=== PATIENT | female | born 1950 | race Caucasian/White ===

== ENCOUNTER 2024-08-23 11:38 | Emergency (ER) | payer OTHER ==
--- OUTSIDE RECORDS SUMMARY | 2024-08-23 11:39 | XMS REPORT | Continuity of Care Document ---
Author Name Unknown Address [address] [place] [address] thconnect Address [address] [place] [address] Care Team Providers [facility] Name Role Phone [email or web address] Attending Clinician Unavaila ble [email or web address] Admitting Clinician Unavaila ble Encounters Start Date/Time End Date/Time Encounter Type Admission Type Attending Clinicians Care Facility Care Department Encounter ID Source 2023-06-11 00:00:00 2023-06-11 00:00:00 Outpatient [email or web address] [facility] [id number] [facility]
--- NOTE | 2024-08-23 12:32 | RAD REPORT ---
EXAM: CT brain without contrast HISTORY: fall, head injury COMPARISON: None TECHNIQUE: Multiple contiguous axial images were obtained and a CT of the brain without contrast. Sag ittal and coronal reformats were performed. FINDINGS: The Department artifact limits evaluation along the mickey and upper aspect of the posterior fossa. No evidence of hydrocephalus, intracranial hemorrhage, or extra-axial fluid collection. Mild brain atrophy with mild periventricular and deep white matter chronic microvascular ischemic ch anges present. The calvarium is intact. The visualized paranasal sinuses and mastoid air cells are essentially clear . Left parietal small scalp hematoma IMPRESSION: No evidence of acute intracranial abnormality. Small left parietal scalp hematoma. EXAM: CT of the cervical spine without contrast HISTORY: fall, head injury COMPARISON: None TECHNIQUE: Multiple contiguous axial images were obtained in a CT of the cervical spine without contr ast. Sagittal and coronal reformats were performed. FINDINGS: The vertebral bodies demonstrate normal height and alignment. No evidence of acute fracture or subluxation.. Moderate multilevel degenerative changes contributing to mild to moderate degrees of neural foraminal narrowing, most pronounced at C3-4 on the right. Ankylosis along the bilateral C2 -3 facet articulations. No prevertebral soft tissue swelling is seen. The posterior facets are well aligned. Normal alignment of the skull base with the cervical spine is seen. The lung apices are unremarkable. IMPRESSION: No evidence of acute osseous abnormality of the cervical spine. Degenerative changes as above.
--- NOTE | 2024-08-23 12:50 | RAD REPORT ---
EXAMINATION: XR LEFT HUMERUS HISTORY: PAIN TECHNIQUE: Multiple views of the left humerus were obtained. COMPARISON: None FINDINGS: Bones are significantly demineralized. Irregular sclerotic appearance to the humeral head n oted there may be at least partial fusion of glenohumeral joint. Underlying rotator cuff is likely torn. No gross evidence of acute fracture. If pain persists, CT may be helpful.
--- NOTE | 2024-08-23 12:52 | RAD REPORT ---
EXAMINATION: XR LEFT FEMUR CLINICAL INDICATION: . PAIN TECHNIQUE: Multiple views of the left femur were obtained. COMPARISON: No prior exam. FINDINGS: Extensive hardware noted throughout the left femur. No hardware abnormality discerned. The bones are osteopenic. No gross fracture appreciated.
--- NOTE | 2024-08-23 13:22 | ER ---
Nurse's Notes [facility] Name: Shantal Andujar Age: 74 yrs Sex: Female : 1950 Arrival Date: 08/23/2024 Time: 11:38 Bed 15 Private MD: Diagnosis: Fall on same level, unspecified;Contusion of left upper arm Presentation: 08/23 11:46 Chief complaint: EMS states: Called due to patient tripping and falling. Pt states that cm10 she was walking and tripped on a mat. Pt complaining of pain to left shoulder, left leg and pain to the left side of her head. No LOC, not on blood thinners. Coronavirus screen: Client denies travel out of the [place] in the last 14 days. Ebola Screen: Patient denies travel to an Ebola-affected area in the 21 days before illness onset. Initial Sepsis Screen: Does the patient meet any 2 criteria? HR > 90 bpm. Does the patient have a suspected source of infection? No. Patient's initial sepsis screen is negative. Risk Assessment: Do you want to hurt yourself or someone else? Patient reports no desire to harm self or others. Onset of symptoms was August 23, 2024. Care prior to arrival: Medication(s) given: Fentanyl 50 mcg IV initiated. 22 GA, in the right wrist. 11:46 Method Of Arrival: EMS: [facility] 11:46 Acuity: ANDREW 3 cm10 Triage Assessment: 11:50 General: Appears in no apparent distress. uncomfortable, Behavior is calm, cooperative. cm10 Pain: Complains of pain in head and anterior aspect of left shoulder Pain does not radiate. Pain currently is 2 out of 10 on a pain scale. Neuro: No deficits noted. Level of Consciousness is awake, alert, obeys commands, Oriented to person, place, time, situation, Appropriate for age. Respiratory: No deficits noted. Airway is patent Respiratory effort is even, unlabored, Respiratory pattern is regular, symmetrical. Derm: Wound noted head Wound is Hematoma. Historical: - Allergies: 11:49 No Known Allergies; cm10 - PMHx: 11:52 Hypertensive disorder; Rheumatoid arthritis; Hypercholesterolemia; cm10 - PSHx: 11:52 Hip; cm10 - Immunization history:: Adult Immunizations up to date. - Infectious Disease History:: Denies. - Social history:: Smoking status: Patient denies any tobacco usage or history of. - Family history:: not pertinent. - Hospitalizations: : No recent hospitalization is reported. Screenin:50 [facility] ED Fall Risk Assessment (Adult) History of falling in the last 3 months, cm10 including since admission Yes- single mechanical fall (1 pt) Confusion or Disorientation No (0 pts) Intoxicated or Sedated No (0 pts) Impaired Gait No (0 pts) Mobility Assist Device Used No (0 pt) Altered Elimination No (0 pt) Score/Fall Risk Level 0 - 2 = Low Risk Oriented to surroundings, Maintained a safe environment, Hourly rounding (assess needs \T\ fall precautionary measures) done. Abuse screen: Denies threats or abuse. Denies injuries from another. Nutritional screening: No deficits noted. Tuberculosis screening: No symptoms or risk factors identified. Assessment: 13:46 Reassessment: Patient appears in no apparent distress at this time. Patient and/or cm10 family updated on plan of care and expected duration. Pain level reassessed. Patient is alert, oriented x 3, equal unlabored respirations, skin warm/dry/pink. Vital Signs: 11:46 BP 140 / 78; Pulse 91; Resp 17; Temp 97.9(O); Pulse Ox 97% on R/A; Weight 57 kg; Height cm10 5 ft. 4 in. ; Pain 2/10; 13:44 BP 138 / 68; Pulse 86; Resp 15; Pulse Ox 97% ; cm10 11:46 Body Mass Index 21.57 (57.00 kg, 162.56 cm) cm10 11:46 Pain Scale: Adult cm10 ED Course: 11:41 Patient arrived in ED. cm10 11:44 Simba Lorenzo MD is Attending Physician. rn 11:49 Triage completed. cm10 11:49 Arm band placed on right wrist. Patient placed in an exam room, on a stretcher. cm10 11:49 Maintain EMS IV. Dressing intact. Good blood return noted. Site clean \T\ dry. Gauge \T\ cm 10 site: 22g right wrist. Flushed with 10 mL NS. 11:50 Patient has correct armband on for positive identification. Bed in low position. Call cm10 light in reach. Side rails up X2. Provided Education on: ER process and procedures.. 12:09 CT Head C Spine In Process Unspecified. EDMS 12:43 XRAY Humerus LEFT In Process Unspecified. EDMS 12:43 XRAY Femur LEFT In Process Unspecified. EDMS 13:01 Meliza Archuleta, RN is Primary Nurse. cm10 13:21 South Reyes MD is Referral Physician. rn 13:21 No provider procedures requiring assistance completed. cm10 13:46 IV discontinued, intact, bleeding controlled, No redness/swelling at site. Pressure cm10 dressing applied. Sling applied to left arm. Administered Medications: No medications were administered Medication: 11:50 VIS not applicable for this client. cm10 Outcome: 13:21 Discharge ordered by . rn 13:46 Discharged to home ambulatory, with family, cm10 13:46 Condition: good 13:46 Discharge instructions given to patient, Instructed on discharge instructions, follow up and referral plans. Demonstrated understanding of instructions, follow-up care, 13:47 Patient left the ED. cm10 Signatures: Dispatcher [employer] [facility] Simba Lorenzo MD MD rn Martinez, Clarissa, RN RN cm10
--- NOTE | 2024-08-23 13:22 | EDPHYS ---
Physician Documentation [facility] Name: Shantal Andujar Age: 74 yrs Sex: Female : 1950 Arrival Date: 08/23/2024 Time: 11:38 Bed 15 Private MD: ED Physician Simba Lorenzo HPI: 08/23 13:16 This 74 yrs old Female presents to ER via EMS with complaints of Fall Injury. rn 13:16 Details of fall: The patient fell from an upright position. rn 13:17 Onset: The symptoms/episode began/occurred today. Associated injuries: The patient rn sustained injury to the head, Left upper arm and left hip. Severity of symptoms: At their worst the symptoms were moderate, in the emergency department the symptoms are unchanged. The patient has experienced similar episodes in the past. Patient reports tripped over mat and fell onto left side, reports mainly having pain to left upper arm just below shoulder. Also hit head and has bump to left forehead. Also struck left hip with mild pain. Reports previous hip replacement with hardware. Mostly concerned of the left arm. No chest/back/abdominal injury or pain. Historical: - Allergies: 11:49 No Known Allergies; cm10 - PMHx: 11:52 Hypertensive disorder; Rheumatoid arthritis; Hypercholesterolemia; cm10 - PSHx: 11:52 Hip; cm10 - Immunization history:: Adult Immunizations up to date. - Infectious Disease History:: Denies. - Social history:: Smoking status: Patient denies any tobacco usage or history of. - Family history:: not pertinent. - Hospitalizations: : No recent hospitalization is reported. ROS: 13:17 Constitutional: Negative for fever, chills, and weight loss, Neck: Negative for injury, rn pain, and swelling, Cardiovascular: Negative for chest pain, palpitations, and edema, Respiratory: Negative for shortness of breath, cough, wheezing, and pleuritic chest pain, Abdomen/GI: Negative for abdominal pain, nausea, vomiting, diarrhea, and constipation, Back: Negative for injury and pain, MS/Extremity: Positive for left arm and left hip pain Skin: Negative for injury, rash, and discoloration, Neuro: Positive for mild headache, negative for focal neurological deficit Exam: 13:17 Constitutional: This is a well developed, well nourished patient who is awake, alert, rn and in no acute distress. Head/Face: Normocephalic, 2 cm hematoma along the hairline left upper forehead. No depression. Eyes: Pupils equal round and reactive to light, extra-ocular motions intact. Neck: No midline cervical tenderness Chest/axilla: No rib tenderness or crepitus noted Cardiovascular: Regular rate and rhythm. No pulse deficits. Abdomen/GI: Soft, non-tender MS/ Extremity: Pulses equal, no cyanosis. Mild tenderness left mid humeral shaft without gross deformity. No tenderness along clavicle or shoulder joint proper. Full range of motion at the left elbow/forearm/wrist/hand. No significant swelling or gross deformity noted Neuro: Awake and alert, GCS 15 Vital Signs: 11:46 BP 140 / 78; Pulse 91; Resp 17; Temp 97.9(O); Pulse Ox 97% on R/A; Weight 57 kg; Height cm10 5 ft. 4 in. ; Pain 2/10; 13:44 BP 138 / 68; Pulse 86; Resp 15; Pulse Ox 97% ; cm10 11:46 Body Mass Index 21.57 (57.00 kg, 162.56 cm) cm10 11:46 Pain Scale: Adult cm10 MDM: 11:44 Medical Screening Exam initiated rn 13:20 Differential diagnosis: closed head injury, contusion, fracture, sprain, strain. Data rn reviewed: vital signs, nurses notes, radiologic studies, CT scan, plain films, and as a result, I will discharge patient. Counseling: I had a detailed discussion with the patient and/or guardian regarding the historical points, exam findings, and any diagnostic results supporting the discharge/admit diagnosis, lab results, radiology results, the need for outpatient follow up, to return to the emergency department if symptoms worsen or persist or if there are any questions or concerns that arise at home. Special discussion: I discussed with the patient/guardian in detail that at this point there is no indication for admission to the hospital. It is understood, however, that if the symptoms persist or worsen the patient needs to return immediately for re-evaluation. Based on the history and exam findings, there is no indication for further emergent testing or inpatient evaluation. I discussed with the patient/guardian the need to see the orthopedic surgeon for further evaluation of the symptoms. I discussed with the patient/guardian the need to see the primary care provider for further evaluation of the symptoms. ED course: No acute fracture of the left humerus on images per my interpretation. CT head and C-spine negative for acute injury. X-ray left femur negative for acute fracture or dislocation. Hardware appears intact and in good position. Patient still having mild tenderness and painful range of motion when trying to lift left arm at shoulder and just inferior to shoulder joint. Will place in shoulder immobilizer as likely rotator cuff injury or muscular/tendon/ligamentous injury present. Recommend MRI and Ortho follow-up. Return precautions given and understood.. 08/23 11:56 Order name: CT Head C Spine; Complete Time: 12:54 rn 08/23 11:56 Order name: XRAY Humerus LEFT; Complete Time: 12:54 rn 08/23 11:56 Order name: XRAY Femur LEFT; Complete Time: 12:54 rn 08/23 12:56 Order name: Shoulder Immobilizer; Complete Time: 13:44 rn Administered Medications: No medications were administered Disposition Summary: 08/23/24 13:21 Discharge Ordered Notes: Location: Home rn Problem: new rn Symptoms: have improved rn Condition: Stable rn Diagnosis - Fall on same level, unspecified rn - Contusion of left upper arm rn Followup: rn - With: South Reyes MD - When: As needed - Reason: Recheck today's complaints, Re-evaluation by your physician Discharge Instructions: - Discharge Summary Sheet rn - Head Injury, Adult rn - How to Use a Shoulder Immobilizer rn - Shoulder Pain rn - Shoulder Sprain rn Forms: - Medication Reconciliation Form rn - Antibiotic health information internship - Prescription Opioid Use rn - Patient Portal Instructions rn - Leadership Thank You Letter rn Signatures: Dispatcher [employer] Simba Nathan MD MD rn Martinez, Clarissa, RN RN cm10 Corrections: (The following items were deleted from the chart) 12:45 11:56 Hip Left 2 View+RAD.RAD.BRZ ordered. EDMA CHARLETTE
[2024-08-23 14:16] VITALS: TEMP 97.9; O2SAT 97
[2024-08-23 14:17] VITALS: BP 138/68
== END 2024-08-23 13:47 | disposition home or self-care (01) ==
LOC: ER 11:38
DX: S40.022A Contusion of left upper arm, initial encounter (principal); W18.30XA Fall on same level, unspecified, initial encounter; M06.9 Rheumatoid arthritis, unspecified; Z96.641 Presence of right artificial hip joint
CPT/HCPCS: 70450; 72125; 99283

== ENCOUNTER 2025-06-11 21:22 | Emergency (ER) | payer OTHER ==
--- NOTE | 2025-06-11 22:00 | RAD REPORT ---
EXAMINATION: XR RIGHT FEMUR CLINICAL INDICATION: . PAIN RIGHT TECHNIQUE: Multiple views of the right femur were obtained. COMPARISON: No prior exam. FINDINGS: Advanced osteopenia. Right total hip arthroplasty is noted. Right total knee arthroplasty i s also present. Mild atherosclerosis. No acute fracture seen. No hardware loosening.
--- NOTE | 2025-06-11 22:30 | ER ---
Nurse's Notes [facility] Name: Shantal Andujar Age: 75 yrs Sex: Female : 1950 Arrival Date: 06/11/2025 Time: 21:22 Bed 9 Private MD: Diagnosis: Pain in right leg Presentation: 06/11 21:29 Chief complaint: EMS states: Pt slid down the wall while trying to help her to jb4 the bathroom. Reports right hip pain. ARLYN hip and knee replacement. Coronavirus screen: At this time, the client does not indicate any symptoms associated with coronavirus-19. Ebola Screen: No symptoms or risks identified at this time. Initial Sepsis Screen: Does the patient meet any 2 criteria? No. Patient's initial sepsis screen is negative. Does the patient have a suspected source of infection? No. Patient's initial sepsis screen is negative. Risk Assessment: Do you want to hurt yourself or someone else? Patient reports no desire to harm self or others. Onset of symptoms was June 11, 2025. Transition of care: patient was not received from another setting of care. 21:29 Method Of Arrival: EMS: [facility] jb4 21:29 Acuity: ANDREW 3 jb4 Historical: - Allergies: 21:31 No Known Allergies; jb4 - Home Meds: 21:31 Folic Acid Oral [Active]; amlodipine oral [Active]; atorvastatin oral [Active]; HCTZ jb4 [Active]; meloxicam oral [Active]; Methotrexate Sodium Oral [Active]; Methylprednisolone Oral [Active]; Metoprolol Tartrate Oral [Active]; Ramipril Oral [Active]; - PMHx: 21:31 Hypercholesterolemia; Rheumatoid Arthritis; Hypertensive disorder; jb4 - PSHx: 21:31 hip; ARLYN hip and knee replacement; jb4 Screenin:46 [facility] ED Fall Risk Assessment (Adult) History of falling in the last 3 months, vc1 including since admission Yes- single mechanical fall (1 pt) Confusion or Disorientation No (0 pts) Intoxicated or Sedated No (0 pts) Impaired Gait No (0 pts) Mobility Assist Device Used No (0 pt) Altered Elimination No (0 pt) Score/Fall Risk Level 0 - 2 = Low Risk Oriented to surroundings, Maintained a safe environment. Abuse screen: Denies threats or abuse. Nutritional screening: No deficits noted. Tuberculosis screening: No symptoms or risk factors identified. Assessment: 21:45 General: Appears in no apparent distress. uncomfortable, Behavior is calm, cooperative, vc1 appropriate for age. Pain: Denies pain. Neuro: Level of Consciousness is awake, alert, obeys commands, Oriented to person, place, time, situation. Cardiovascular: Patient's skin is warm and dry. Respiratory: Airway is patent Respiratory effort is even, unlabored, Respiratory pattern is regular, symmetrical. Derm: Skin is intact, Skin is pink, warm \T\ dry. Musculoskeletal: Circulation, motion, and sensation intact. Range of motion: intact in all extremities. 22:46 Reassessment: Patient appears in no apparent distress at this time. Patient and/or vc1 family updated on plan of care and expected duration. Pain level reassessed. Patient is alert, oriented x 3, equal unlabored respirations, skin warm/dry/pink. Vital Signs: 21:43 Pulse 62; Resp 16; Temp 99.2(O); Pulse Ox 97% ; Weight 56.7 kg (R); Height 5 ft. 4 in. jb4 (R); 22:46 BP 119 / 68; Pulse 72; Resp 16; Pulse Ox 98% on R/A; vc1 21:43 Body Mass Index 21.46 (56.70 kg, 162.56 cm) jb4 ED Course: 21:22 Patient arrived in ED. rv1 21:23 Susana Cerna FNP-C is [facility]. kb 21:23 Dion Swenson MD is Attending Physician. kb 21:30 Triage completed. jb4 21:31 Arm band placed on right wrist. jb4 21:53 Femur Right XRAY In Process Unspecified. EDMS 22:46 Patient has correct armband on for positive identification. Bed in low position. Call vc1 light in reach. Side rails up X 1. Provided Education on: plan of care. 22:46 No provider procedures requiring assistance completed. IV discontinued, intact, vc1 bleeding controlled, No redness/swelling at site. Pressure dressing applied. Administered Medications: No medications were administered Medication: 22:46 VIS not applicable for this client. vc1 Outcome: 22:30 Discharge ordered by . kb 22:46 Discharged to home ambulatory, with family, vc1 22:46 Condition: stable 22:46 Discharge instructions given to patient, Instructed on discharge instructions, follow up and referral plans. Demonstrated understanding of instructions, follow-up care, 22:48 Patient left the ED. vc1 Signatures: Dispatcher [employer] EDSusana Ward, [employer] SALES REPRESENTATIVE-C [employer] SALES REPRESENTATIVE-Jalil Bashir RN RN jb4 Abiola Giron RN RN vc1 Aleyda Morris rv1 Corrections: (The following items were deleted from the chart) 21:35 21:31 PMHx: Hypercholesterolemia; jb4 jb4
--- NOTE | 2025-06-11 22:30 | EDPHYS ---
Physician Documentation [facility] Name: Shantal Andujar Age: 75 yrs Sex: Female : 1950 Arrival Date: 06/11/2025 Time: 21:22 Bed 9 Private MD: ED Physician Dion Swenson HPI: 06/11 21:37 This 75 yrs old Female presents to ER via EMS with complaints of fall, right leg pain. kb 21:37 Patient is a 75-year-old female who presents for right lateral thigh pain. States her kb fell, accidentally pushed her in the process and made her fall as well. Complains of pain to the right leg only. Denies any other pain or trauma. Denies hitting head or LOC.. Historical: - Allergies: 21:31 No Known Allergies; jb4 - Home Meds: 21:31 Folic Acid Oral [Active]; amlodipine oral [Active]; atorvastatin oral [Active]; HCTZ jb4 [Active]; meloxicam oral [Active]; Methotrexate Sodium Oral [Active]; Methylprednisolone Oral [Active]; Metoprolol Tartrate Oral [Active]; Ramipril Oral [Active]; - PMHx: 21:31 Hypercholesterolemia; Rheumatoid Arthritis; Hypertensive disorder; jb4 - PSHx: 21:31 hip; ARLYN hip and knee replacement; jb4 ROS: 21:36 Constitutional: As per HPI kb Exam: 21:36 Constitutional: This is a well developed, well nourished patient who is awake, alert, kb and in no acute distress. Head/Face: Normocephalic, atraumatic. ENT: Moist Mucous membranes Respiratory: Respirations even and unlabored. No increased work of breathing. Talking in full sentences Skin: Warm, dry with normal turgor. Normal color. Neuro: Awake and alert, GCS 15, oriented to person, place, time, and situation. 21:36 Musculoskeletal/extremity: Extremities: grossly normal except: noted in the lateral aspect of right thigh: pain, tenderness, ROM: intact in all extremities, Circulation is intact in all extremities. Sensation intact. Vital Signs: 21:43 Pulse 62; Resp 16; Temp 99.2(O); Pulse Ox 97% ; Weight 56.7 kg (R); Height 5 ft. 4 in. jb4 (R); 22:46 BP 119 / 68; Pulse 72; Resp 16; Pulse Ox 98% on R/A; vc1 21:43 Body Mass Index 21.46 (56.70 kg, 162.56 cm) jb4 MDM: 21:23 Medical Screening Exam initiated kb 21:36 Differential diagnosis: closed fracture, contusion. Data reviewed: vital signs, nurses kb notes. Historians other than the Patient: EMS: [facility]. 21:52 Independent interpretation of the following test(s) in the Emergency Department X-Ray: kb My interpretation is no acute fracture. Counseling: I had a detailed discussion with the patient and/or guardian regarding the historical points, exam findings, and any diagnostic results supporting the discharge/admit diagnosis, radiology results, the need for outpatient follow up, a family practitioner, to return to the emergency department if symptoms worsen or persist or if there are any questions or concerns that arise at home. 06/11 21:23 Order name: Femur Right XRAY; Complete Time: 22:03 kb Administered Medications: No medications were administered Disposition: 06/12 21:58 Co-signature as Attending Physician, Dion Swenson MD I agree with the assessment sp4 and plan of care. I reviewed the patient's care provided by Advanced Practice Provider \T\ agree w/ the diagnosis \T\ care plan. I personally saw the pt \T\ performed a substantive portion of the visit, incldng all aspects of the (History/Exam/Medical Decision Making). Disposition Summary: 06/11/25 22:30 Discharge Ordered Notes: Location: Home kb Condition: Stable kb Diagnosis - Pain in right leg kb Followup: kb - With: Emergency Department - When: As needed - Reason: Worsening of condition Followup: kb - With: Private Physician - When: 2 - 3 days - Reason: Recheck today's complaints, Continuance of care, Re-evaluation by your physician Discharge Instructions: - Discharge Summary Sheet kb - Musculoskeletal Pain kb Forms: - Medication Reconciliation Form kb - Antibiotic Education kb - Prescription Opioid Use kb - Patient Portal Instructions kb - Leadership Thank You Letter kb Signatures: Dispatcher [employer] Susana Jacobs FNP-C FNP-Jalil Bashir RN RN jb4 Dion Swenson MD MD sp4 Corrections: (The following items were deleted from the chart) 06/11 21:35 21:31 PMHx: Hypercholesterolemia; jb4 jb4
[2025-06-12 05:16] VITALS: TEMP 99.2
[2025-06-12 05:17] VITALS: BP 119/68; O2SAT 98
== END 2025-06-11 22:48 | disposition home or self-care (01) ==
LOC: ER 21:22
DX: M79.604 Pain in right leg (principal); Z96.643 Presence of artificial hip joint, bilateral; Z96.653 Presence of artificial knee joint, bilateral
CPT/HCPCS: 99283